=== PATIENT | female | born 1960 | race Caucasian/White ===

== ENCOUNTER 2016-07-14 16:08 | Emergency (ER) | payer MEDICAID, OTHER ==
--- NOTE | 2016-07-14 16:46 | EDPHY ---
H & P Stated Complaint: Concerned about Blood clot. Increased pain to right leg Time Seen by Provider: 07/14/16 16:34 HPI/ROS: CHIEF COMPLAINT: Leg discomfort HISTORY OF PRESENT ILLNESS: The patient is a 55-year-old female who comes to the emergency department complaining of right leg discomfort. It started in her right calf thinks gradually progressed to her knee and now posterior thigh. She is worried about a DVT. Her sisters have both had DVTs. She initially told triage that she thought she had some shortness of breath as well but denies this to me. She states that it was just in her head. She has a history of surgery on her right foot 6 years ago and is scheduled to have her prosthesis removed in a week. She has had a preoperative testing for this and is concerned that it will be canceled. She did have a mild cold last week that is now resolved. She denies chest pain. REVIEW OF SYSTEMS: Constitutional: denies: chills, fever, recent illness, recent injury EENTM: denies: blurred vision, double vision, nose congestion Respiratory: denies: cough, shortness of breath Cardiac: denies: chest pain, irregular heart rate, lightheadedness, palpitations Gastrointestinal/Abdominal: denies: abdominal pain, diarrhea, nausea, vomiting, blood streaked stools Genitourinary: denies: dysuria, frequency, hematuria, pain Musculoskeletal: See HPI,denies: joint pain, muscle pain Skin: denies: lesions, rash, jaundice, bruising Neurological: denies: headache, numbness, paresthesia, tingling, dizziness, weakness Hematologic/Lymphatic: denies: blood clots, easy bleeding, easy bruising Immunologic/allergic: denies: HIV/AIDS, transplant EXAM: GENERAL: Well-appearing, well-nourished and in no acute distress. HEAD: Atraumatic, normocephalic. EYES: Pupils equal round and reactive to light, extraocular movements intact, sclera anicteric, conjunctiva are normal. ENT: TMs normal, nares patent, oropharynx clear without exudates. Moist mucous membranes. NECK: Normal range of motion, supple without lymphadenopathy or JVD. LUNGS: Breath sounds clear to auscultation bilaterally and equal. No wheezes rales or rhonchi. HEART: Regular rate and rhythm without murmurs, rubs or gallops. ABDOMEN: Soft, nontender, normoactive bowel sounds. No guarding, no rebound. No masses appreciated. BACK: No CVA tenderness, no spinal tenderness, step-offs or deformities EXTREMITIES: Normal range of motion, no pitting or edema. No clubbing or cyanosis. NEUROLOGICAL: Cranial nerves II through XII grossly intact. Normal speech, normal gait. 5/5 strength, normal movement in all extremities, normal sensation PSYCH: Normal mood, normal affect. SKIN: Warm, dry, normal turgor, no visible rashes or lesions. Source: Patient Exam Limitations: No limitations - Personal History Current Tetanus Diphtheria and Acellular Pertussis (TDAP): Yes - Medical/Surgical History Hx Asthma: No Hx Chronic Respiratory Disease: No Hx Diabetes: No Hx Cardiac Disease: No Hx Renal Disease: No Hx Cirrhosis: No Hx Alcoholism: No Hx HIV/AIDS: No Hx Splenectomy or Spleen Trauma: No Other PMH: foot surgery with screws - Family History Significant Family History: Hypertension - Social History Smoking Status: Light smoker Alcohol Use: Sober Drug Use: None Constitutional: Initial Vital Signs Temperature (C) 36.5 C 07/14/16 16:16 Heart Rate 97 07/14/16 16:16 Respiratory Rate 16 07/14/16 16:16 Blood Pressure 156/82 H 07/14/16 16:16 O2 Sat (%) 97 07/14/16 16:16 O2 Delivery Mode Room Air Allergies/Adverse Reactions: No Known Allergies Allergy (Unverified 07/14/16 16:20) Medical Decision Making - Diagnostics EKG Interpretation: An EKG obtained and was read and documented in trace view. Please see trace view for full reading and report. Sinus rhythm, no acute ischemic changes, no signs of right heart strain Imaging: Study: Ultrasound of the: Right leg Indication: Right leg discomfort Results: US scan of the right leg was obtained. The results of the study are positive for right-sided bursitis/tendinitis tracking up hamstring tendon. The study was read by the radiologist, Dr. Wilfredo Perea. I viewed the images myself on the PACS system. ED Course/Re-evaluation: we discussed the ultrasound results. The patient is relieved. She continues to deny any chest pain or shortness of breath. She does not wish to have further workup or testing. She is eager to go home. She declines further testing. Additional verbal discharge instructions given. Differential Diagnosis: Partial list of the Differential diagnosis considered include but were not limited to; bursitis, tendonitis, DVT, PE, anxiety and although unlikely based on the history and physical exam, I also considered cellulitis, abscess, claudication. I discussed these differential diagnoses and the plan with the patient as well as the usual and expected course. The patient understands that the diagnosis is provisional and that in medicine we are not always correct and that further workup is often warranted. Usual and customary warnings were given. All of the patient's questions were answered. The patient was instructed to return to the emergency department should the symptoms at all worsen or return, otherwise to followup with the physician as we discussed. Departure - Departure Disposition: Home, Routine, Self-Care Clinical Impression: Bursitis Condition: Fair Instructions: Knee Bursitis (ED) Additional Instructions: Take anti-inflammatories is rest your leg as we discussed. Referrals: Clarita Perry MD [Medical Doctor] - As per Instructions
--- NOTE | 2016-07-14 17:22 | CPEKG ---
Heart Rate: 73 RR Interval: 822 P-R Interval: 144 QRSD Interval: 82 QT Interval: 408 QTC Interval: 450 P [place]: 60 QRS [place]: 51 T Wave [place]: 56 EKG Severity - NORMAL ECG - EKG Impression: SINUS RHYTHM Electronically Signed By: Martir Vaca 14-Jul-2016 17:25:58
--- NOTE | 2016-07-14 17:43 | US ---
Venous Duplex Doppler Study of the Right Lower Extremity Clinical Indications: 55-year-old female with pain beginning in the calf and moving up the leg, [facility] ed a few weeks ago. There is no personal history of blood clots, although there are some family membe rs with blood clots. Evaluate for deep or superficial venous thrombosis. Technique: A high-frequency transducer was used for imaging and Doppler study of the deep veins of th e right leg from the upper calf to the groin. Pulsed Doppler and color Doppler were utilized, along with various maneuvers, to assess flow in the deep veins. Cursory evaluation of the left common femor al vein was obtained for comparison purposes, and is normal. A cine clip was acquired through the rig ht medial aspect of the knee. Comparison Study: None. Findings: The deep veins of the right groin, thigh, knee, and upper calf are displayed, and are norm ally compressible. Doppler flow patterns are unremarkable. There is no evidence of deep venous thro mbosis. There is normal compression of the greater saphenous vein, without superficial thrombosis. In the medial aspect of the knee, there is a 2.9 x 0.6 cm tapering fluid collection, which likely repre sents a pes anserine bursitis. Impression: 1. There is no sonographic evidence of deep or superficial vein thrombosis in the right leg. 2. There is a 2.9 x 0.6 cm fluid collection along the medial aspect of the knee, likely representing a pes anserine bursitis. Results were conveyed to Dr. Martir Vaca. A test result has been communicated to a licensed care provider and documented in [employer], 5:35:22 PM , 07/14/2016, [employer] Message ID [id number].
[2016-07-14 18:00] VITALS: BP 138/78; PULSE 80; RESP 14; TEMP 98.4; O2SAT 94
== END 2016-07-14 17:59 | disposition home or self-care (01) ==
DX: M71.9 Bursopathy, unspecified (principal); F17.200 Nicotine dependence, unspecified, uncomplicated

== ENCOUNTER 2017-03-10 14:49 | Inpatient (IN) | payer MEDICAID ==
[2017-03-10] MEDS ORDERED: HYDROmorphONE/DILAUDID 1 MG/ML SYR IVP ONE ×2 (15:08→19:11)
[2017-03-10] MEDS ORDERED: NS 1,000 ML IV ONE ×2 (15:08→19:11)
[2017-03-10] MEDS ORDERED: ONDANSETRON 4 MG/2 ML VIAL IVP ONE ×2 (15:08→19:10)
--- NOTE | 2017-03-10 15:21 | EDPHY ---
H & P Stated Complaint: n/v this am now with epigastric/cp and sob Time Seen by Provider: 03/10/17 15:01 HPI/ROS: CHIEF COMPLAINT: Epigastric pain HISTORY OF PRESENT ILLNESS: The patient is a 56-year-old female who comes to the emergency department complaining of epigastric and lower abdominal discomfort that radiates to her left chest. She states that she has vomited 5 or 6 times since it began around 5 hours ago. She has also had diarrhea. She denies fever. She endorses shortness of breath but states that it is only when she is retching. She denies having any history of cardiac disease. She does drink regularly but denies alcoholism. She does not take any medications. REVIEW OF SYSTEMS: Constitutional: denies: chills, fever, recent illness, recent injury EENTM: denies: blurred vision, double vision, nose congestion Respiratory: denies: cough, shortness of breath Cardiac: See HPI Gastrointestinal/Abdominal: See HPI Genitourinary: denies: dysuria, frequency, hematuria, pain Musculoskeletal: denies: joint pain, muscle pain Skin: denies: lesions, rash, jaundice, bruising Neurological: denies: headache, numbness, paresthesia, tingling, dizziness, weakness Hematologic/Lymphatic: denies: blood clots, easy bleeding, easy bruising Immunologic/allergic: denies: HIV/AIDS, transplant EXAM: GENERAL: Well-appearing, well-nourished and in no acute distress. HEAD: Atraumatic, normocephalic. EYES: Pupils equal round and reactive to light, extraocular movements intact, sclera anicteric, conjunctiva are normal. ENT: TMs normal, nares patent, oropharynx clear without exudates. Moist mucous membranes. NECK: Normal range of motion, supple without lymphadenopathy or JVD. LUNGS: Breath sounds clear to auscultation bilaterally and equal. No wheezes rales or rhonchi. HEART: Regular rate and rhythm without murmurs, rubs or gallops. ABDOMEN: Mild upper abdominal the pain and fullness, no tenderness, normoactive bowel sounds. No guarding, no rebound. No masses appreciated. BACK: No CVA tenderness, no spinal tenderness, step-offs or deformities EXTREMITIES: Normal range of motion, no pitting or edema. No clubbing or cyanosis. NEUROLOGICAL: Cranial nerves II through XII grossly intact. Normal speech, normal gait. 5/5 strength, normal movement in all extremities, normal sensation PSYCH: Normal mood, normal affect. SKIN: Warm, dry, normal turgor, no visible rashes or lesions. Source: Patient Exam Limitations: No limitations - Personal History Current Tetanus/Diphtheria Vaccine: Unsure - Medical/Surgical History Hx Asthma: No Hx Chronic Respiratory Disease: No Hx Diabetes: No Hx Cardiac Disease: No Hx Renal Disease: No Hx Cirrhosis: No Hx Alcoholism: No Hx HIV/AIDS: No Hx Splenectomy or Spleen Trauma: No Other PMH: foot surgery with screws - Social History Smoking Status: Former smoker Alcohol Use: Sober Drug Use: None Constitutional: Initial Vital Signs Temperature (C) 37 C 03/10/17 14:52 Heart Rate 71 03/10/17 14:52 Respiratory Rate 18 03/10/17 14:52 Blood Pressure 164/95 H 03/10/17 14:52 O2 Sat (%) 99 03/10/17 14:52 O2 Delivery Mode Room Air Allergies/Adverse Reactions: No Known Allergies Allergy (Verified 03/10/17 14:51) Home Medications: Medication Instructions Recorded NK [No Known Home Meds] 03/10/17 Medical Decision Making - Diagnostics EKG Interpretation: An EKG obtained and was read and documented in trace view. Please see trace view for full reading and report. Sinus rhythm, no acute ischemic changes, unchanged from previous Imaging Results: Imaging Impressions Chest/Thorax CTA 03/10/17 16:34 Impression: Negative CT examination of the chest for acute pulmonary thromboembolic disease. Results called to Dr. Martir Rodriguez at 7:00 PM at the time of the interpretation. Abdomen CT 03/10/17 16:48 Impression: 1. Acute pancreatitis, without evidence of necrosis or pseudocyst formation. 2. High attenuation material at the dependent aspect of the bladder, which could be related to calcifications, with no appreciable mass. Correlation is recommended with UA. 3. Fat-containing supraumbilical hernia. 4. Additional findings, as above. Findings discussed with Mratir Vaca M.D. on March 10, 2017 at 1909. E:amm ED Course/Re-evaluation: On repeat evaluation the patient is feeling much better after Dilaudid. We discussed her lab results thus far. Her repeat abdominal exam is benign. She felt me now that her abdominal pain is somewhat chronic and is being worked up by her primary. She states that it is not really changed from her baseline. The epigastric/chest pain is new. I will order CT scan for further evaluation. After CT chest was ordered the lab called and stated the patient's lipase is not back yet because it is needing to be done lead. I will add on a CT of her abdomen. 5:50 p.m. the patient was up into the bathroom. She has an unsteady gait. No obvious tremors or tachycardia. I will treat her with thiamine and folate. She has denied repeatedly to me that she is a heavy drinker. 7:[address] results obtained, will admit to Dr. Alvarado Vera. She needed another dose of pain and nausea medication. Differential Diagnosis: Partial list of the Differential diagnosis considered include but were not limited to; pancreatitis, biliary disease, PE, acute coronary disease , alcoholism, Wernicke encephalopathy and although unlikely based on the history and physical exam, I also considered obstruction, withdrawal. - Data Points Laboratory Results: Laboratory Results 03/10/17 15:41 03/10/17 15:41 03/10/17 03/10/17 03/10/17 17:30 15:50 15:41 WBC RBC Hgb Hct MCV MCH MCHC RDW Plt Count MPV Neut % (Auto) Lymph % (Auto) [facility] % (Auto) Eos % (Auto) Baso % (Auto) Nucleat RBC Rel Count Absolute Neuts (auto) Absolute Lymphs (auto) Absolute Monos (auto) Absolute Eos (auto) Absolute Basos (auto) Absolute Nucleated RBC Immature Gran % Immature Gran # D-Dimer 2.25 ug/mLFEU H ug/mLFEU (0.00-0.50) Sodium Potassium Chloride Carbon Dioxide Anion Gap BUN Creatinine Estimated GFR Glucose Calcium Total Bilirubin Conjugated Bilirubin Unconjugated Bilirubin AST ALT Alkaline Phosphatase Troponin I Total Protein Albumin Lipase Beta HCG, Qual Urine Color YELLOW Urine Appearance CLEAR Urine pH 5.0 (5.0-7.5) Ur Specific [place] 1.019 (1.002-1.030) Urine Protein 1+ H (NEGATIVE) Urine Ketones 2+ H (NEGATIVE) Urine Blood 1+ H (NEGATIVE) Urine Nitrate NEGATIVE (NEGATIVE) Urine Bilirubin NEGATIVE (NEGATIVE) Urine Urobilinogen NEGATIVE EU EU (0.2-1.0) Ur Leukocyte Esterase NEGATIVE (NEGATIVE) Urine RBC 5-10 /hpf H /hpf (0-3) Urine WBC 1-3 /hpf /hpf (0-3) Ur Epithelial Cells TRACE /lpf /lpf (NONE-1+) Urine Bacteria TRACE /hpf H /hpf (NONE SEEN) Hyaline Casts 1-5 /lpf /lpf (0-1) Urine Mucus TRACE /lpf /lpf (NONE-1+) Urine Glucose NEGATIVE (NEGATIVE) Ethyl Alcohol < 10 mg/dL mg/dL (0-10) 03/10/17 03/10/17 03/10/17 15:41 15:41 15:41 WBC 9.47 10^3/uL 10^3/uL (3.80-9.50) RBC 4.38 10^6/uL 10^6/uL (4.18-5.33) Hgb 15.8 g/dL g/dL (12.6-16.3) Hct 44.0 % % (38.0-47.0) MCV 100.5 fL H fL (81.5-99.8) MCH 36.1 pg H pg (27.9-34.1) MCHC 35.9 g/dL g/dL (32.4-36.7) RDW 13.8 % % (11.5-15.2) Plt Count 298 10^3/uL 10^3/uL (150-400) MPV 8.9 fL fL (8.7-11.7) Neut % (Auto) 81.8 % H % (39.3-74.2) Lymph % (Auto) 9.3 % L % (15.0-45.0) [facility] % (Auto) 8.3 % % (4.5-13.0) Eos % (Auto) 0.0 % L % (0.6-7.6) Baso % (Auto) 0.2 % L % (0.3-1.7) Nucleat RBC Rel Count 0.0 % % (0.0-0.2) Absolute Neuts (auto) 7.74 10^3/uL H 10^3/uL (1.70-6.50) Absolute Lymphs (auto) 0.88 10^3/uL L 10^3/uL (1.00-3.00) Absolute Monos (auto) 0.79 10^3/uL 10^3/uL (0.30-0.80) Absolute Eos (auto) 0.00 10^3/uL L 10^3/uL (0.03-0.40) Absolute Basos (auto) 0.02 10^3/uL 10^3/uL (0.02-0.10) Absolute Nucleated RBC 0.00 10^3/uL 10^3/uL (0-0.01) Immature Gran % 0.4 % % (0.0-1.1) Immature Gran # 0.04 10^3/uL 10^3/uL (0.00-0.10) D-Dimer Sodium 129 mEq/L L mEq/L (134-144) Potassium 4.6 mEq/L mEq/L (3.5-5.2) Chloride 96 mEq/L L mEq/L (97-110) Carbon Dioxide 21 mEq/l L mEq/l (22-31) Anion Gap 12 mEq/L mEq/L (8-16) BUN 7 mg/dL mg/dL (7-23) Creatinine 0.5 mg/dL L mg/dL (0.6-1.0) Estimated GFR > 60 Glucose 81 mg/dL mg/dL (70-100) Calcium 9.8 mg/dL mg/dL (8.5-10.4) Total Bilirubin 1.2 mg/dL mg/dL (0.1-1.4) Conjugated Bilirubin 0.4 mg/dL mg/dL (0.0-0.5) Unconjugated Bilirubin 0.8 mg/dL mg/dL (0.0-1.1) AST 41 IU/L IU/L (14-46) ALT 46 IU/L IU/L (9-52) Alkaline Phosphatase 61 IU/L IU/L (38-126) Troponin I < 0.012 ng/mL ng/mL (0.000-0.034) Total Protein 7.3 g/dL g/dL (6.3-8.2) Albumin 4.4 g/dL g/dL (3.5-5.0) Lipase 20539 IU/L H IU/L (23-300) Beta HCG, Qual NEGATIVE Urine Color Urine Appearance Urine pH Ur Specific [place] Urine Protein Urine Ketones Urine Blood Urine Nitrate Urine Bilirubin Urine Urobilinogen Ur Leukocyte Esterase Urine RBC Urine WBC Ur Epithelial Cells Urine Bacteria Hyaline Casts Urine Mucus Urine Glucose Ethyl Alcohol Medications Given: Diphenhydramine HCl (Benadryl Injection) 25 - 50 mg IVP Q6HRS PRN PRN Reason: Itching Stop: 09/06/17 19:31 Last Admin: 03/10/17 22:09 Dose: 25 mg Sodium Chloride (Ns) 1,000 mls @ 150 mls/hr IV CONT [place] Stop: 09/06/17 19:44 Last Admin: 03/10/17 20:58 Dose: 1,000 mls Morphine Sulfate (Morphine Trailer Chief) 0 mg IV PRN PRN; Protocol PRN Reason: Pain, Severe Unable to Take PO Stop: 03/20/17 19:31 Last Admin: 03/10/17 20:57 Dose: 30 mg Promethazine HCl (Phenergan) 6.25 - 12.5 mg IVP Q6HRS PRN PRN Reason: Nausea/Vomiting, Use 2nd Stop: 09/06/17 19:31 Last Admin: 03/10/17 20:59 Dose: 12.5 mg Zolpidem Tartrate (Ambien) 10 mg PO HS PRN PRN Reason: Sleep/Insomnia Stop: 09/06/17 21:06 Last Admin: 03/10/17 22:03 Dose: 10 mg Discontinued Medications Folic Acid (Folic Acid) 1 mg PO EDNOW ONE Stop: 03/10/17 17:42 Last Admin: 03/10/17 22:04 Dose: Not Given Hydromorphone HCl (Dilaudid) 1 mg IVP EDNOW ONE Stop: 03/10/17 15:09 Last Admin: 03/10/17 15:40 Dose: 1 mg Hydromorphone HCl (Dilaudid) 1 mg IVP EDNOW ONE Stop: 03/10/17 19:12 Last Admin: 03/10/17 19:12 Dose: 1 mg Sodium Chloride (Ns) 1,000 mls @ 0 mls/hr IV EDNOW ONE; Wide Open PRN Reason: Protocol Stop: 03/10/17 15:09 Last Admin: 03/10/17 15:40 Dose: 1,000 mls Sodium Chloride (Ns) 1,000 mls @ 3,000 mls/hr IV ONCE ONE Stop: 03/10/17 19:30 Last Admin: 03/10/17 19:13 Dose: 1,000 mls Ondansetron HCl (Zofran) 4 mg IVP EDNOW ONE Stop: 03/10/17 15:09 Last Admin: 03/10/17 15:40 Dose: 4 mg Ondansetron HCl (Zofran) 4 mg IVP EDNOW ONE Stop: 03/10/17 19:11 Last Admin: 03/10/17 19:12 Dose: 4 mg Thiamine HCl (Vitamin B-1) 100 mg PO EDNOW ONE Stop: 03/10/17 18:50 Last Admin: 03/10/17 22:03 Dose: Not Given Departure - Departure Disposition: [facility] Acute Clinical Impression: Pancreatitis Qualifiers: Chronicity: acute Pancreatitis type: unspecified pancreatitis type Acute pancreatitis complication: unspecified Qualified Code(s): K85.90 - Acute pancreatitis without necrosis or infection, unspecified Condition: Fair
--- NOTE | 2017-03-10 15:47 | CPEKG ---
Heart Rate: 66 RR Interval: 909 P-R Interval: 144 QRSD Interval: 88 QT Interval: 456 QTC Interval: 478 P [place]: 80 QRS [place]: 70 T Wave [place]: 65 EKG Severity - BORDERLINE ECG - EKG Impression: SINUS RHYTHM EKG Impression: BORDERLINE INFERIOR Q WAVES Electronically Signed By: Martir Vaca 10-Mar-2017 16:08:24
[2017-03-10 15:57] LABS: % IMMATURE GRANULYOCYTES 0.4 % (0.0-1.1); ABSOLUTE IMMATURE GRANULOCYTES 0.04 10^3/uL (0.00-0.10); ADD DIFF? NO; ADD MORPH? NO; ADD SCAN? NO; ATYPICAL LYMPHOCYTE FLAG 10 (0-99); FRAGMENT RBC FLAG 0 (0-99); HEMOGLOBIN 15.8 g/dL (12.6-16.3); LEFT SHIFT FLG 0 (0-99); LIPEMIA HEMOLYSIS FLAG 90 (0-99); MEAN CELL HEMOGLOBIN 36.1 pg (27.9-34.1); MEAN CELL HEMOGLOBIN CONCENTR. 35.9 g/dL (32.4-36.7); MEAN CELL VOLUME 100.5 fL (81.5-99.8); MEAN PLATELET VOLUME 8.9 fL (8.7-11.7); PLATELET CLUMPS FLAG 0 (0-99); PLATELET COUNT 298 10^3/uL (150-400); RED BLOOD CELL COUNT 4.38 10^6/uL (4.18-5.33); RED CELL DISTRIBUTION WIDTH 13.8 % (11.5-15.2)
[2017-03-10 16:08] LABS: ALANINE AMINOTRANSFERASE 46 IU/L (9-52); ALBUMIN 4.4 g/dL (3.5-5.0); ALKALINE PHOSPHATASE 61 IU/L (38-126); ANION GAP 12 mEq/L (8-16); ASPARTATE AMINOTRANSFERASE 41 IU/L (14-46); BILIRUBIN,TOTAL 1.2 mg/dL (0.1-1.4); BILIRUBIN-CONJUGATED 0.4 mg/dL (0.0-0.5); BILIRUBIN-UNCONJUGATED 0.8 mg/dL (0.0-1.1); CALCIUM 9.8 mg/dL (8.5-10.4); CARBON DIOXIDE 21 mEq/l (22-31); CHLORIDE 96 mEq/L (97-110); CREATININE 0.5 mg/dL (0.6-1.0); GLOMERULAR FILTRATION RATE > 60; GLUCOSE 81 mg/dL (70-100); POTASSIUM 4.6 mEq/L (3.5-5.2); SODIUM 129 mEq/L (134-144); TOTAL PROTEIN 7.3 g/dL (6.3-8.2)
[2017-03-10] MEDS ORDERED: IOPAMIDOL (ISOVUE 370) 100 ML BTL IV ONE (17:37)
[2017-03-10 17:38] LABS: TROPONIN I < 0.012 ng/mL (0.000-0.034)
[2017-03-10] MEDS ORDERED: FOLIC ACID 1 MG TAB PO ONE (17:41)
[2017-03-10 18:12] LABS: COLOR YELLOW; LEUKOCYTE ESTERASE,URINE NEGATIVE (NEGATIVE); NITRITE,URINE NEGATIVE (NEGATIVE)
[2017-03-10] MEDS ORDERED: THIAMINE HCL 500 MG in NS 100 ML IV ONE (18:19)
[2017-03-10 18:31] LABS: BACTERIA TRACE /hpf (NONE SEEN); MUCUS TRACE /lpf (NONE-1+)
[2017-03-10] MEDS ORDERED: THIAMINE HCL 100 MG TAB PO ONE (18:49)
[2017-03-10] MEDS ORDERED: ONDANSETRON 4 MG/2 ML VIAL ONE (19:05)
[2017-03-10] MEDS ORDERED: HYDROmorphONE/DILAUDID 1 MG/ML SYR ONE (19:05)
[2017-03-10 19:21] LABS: ETHANOL SERUM < 10 mg/dL (0-10)
[2017-03-10] MEDS ORDERED: ONDANSETRON DISINTEGRATING 4 MG TAB PO PRN (19:32)
[2017-03-10] MEDS ORDERED: LORazepam 2 MG/ML INJ IVP PRN (19:32)
[2017-03-10] MEDS ORDERED: NALOXONE HCL 0.4 MG/ML INJ IVP PRN (19:32)
[2017-03-10] MEDS ORDERED: ONDANSETRON 4 MG/2 ML VIAL IVP PRN (19:32)
[2017-03-10] MEDS ORDERED: PROMETHAZINE HCL 25 MG/ML INJ IVP PRN (19:32)
--- NOTE | 2017-03-10 20:33 | GHP ---
[f rep st] HISTORY AND PHYSICAL DATE OF ADMISSION: 03/10/2017 This patient is a 56-year-old female with minimal past medical history, although she has been being evaluated by her primary care physician over the course of weeks or months for "digestive problems." She presents today with a day or so history of worsening pain, really everywhere, but mostly in th e epigastrium associated with nausea and vomiting. No diarrhea. She has been intolerant of p.o. S he still has her gallbladder, and denies abdominal trauma. She notes she drinks regularly, but denies binge alcohol. Has never had pancreatitis before. She h as no shortness of breath. No fever or chills. REVIEW OF SYSTEMS: Complete 10-point review of systems conducted, and negative except as in the HPI . PAST MEDICAL HISTORY: None, although there are ongoing digestive problems. Notably, she denies anastasia rrhea. ALLERGIES: She does note some pruritus as a result of the DILAUDID, and she had a similar reaction following some foot surgery in July, though she could not recall which PAIN MEDICINE it was. CURRENT MEDICATIONS: Antianxiety pill; she cannot remember the name of this. SOCIAL HISTORY: No tobacco. Alcohol as in the HPI. FAMILY HISTORY: Negative for pancreatitis. PHYSICAL EXAMINATION: VITAL SIGNS: Temp 37, blood pressure 164/95, pulse 71, breathing 18 times a minute, 99% on room air. GENERAL: Uncomfortable. Mild distress. HEENT: Sclerae anicteric. Oropharynx clear. Mucous membranes moist. NECK: Supple without lymphadenopathy or JVD. LUNGS: Clear to auscultation bilaterally. HEART: S1, S2, not tachycardic. ABDOMEN: Soft. It is diffusely tender. There is no rebound or guarding. LOWER EXTREMITIES: Without edema. Calves are nontender. SKIN: Without rash. NEUROLOGIC: Exam is nonfocal. LABS: White count 9.5, hematocrit 44, MCV is elevated to 100.5, platelets are 298,000. D-dimer is 2.25. Sodium 129, potassium 4.6, chloride 96, bicarb 21, BUN 7, creatinine 0.5. LFTs normal. Trop onin less than 0.012. Lipase is elevated at 19,291. Beta hCG is negative. UA shows 5-10 red cells, otherwise unremarkable. Ethanol level is negative. Abdominal CT, reviewed and interpreted by me, shows pancreatitis with normal liver and gallbladder a nd bile ducts. CTA of the chest shows no evidence of PE, but pancreatitis as discussed. EKG, interpreted by me, shows sinus at 66 with normal axis and intervals with no ST or T-wave change s. I discussed the case Dr. Martir Vaca. ASSESSMENT AND PLAN: A 56-year-old female, who presents with pancreatitis. 1. Pancreatitis: There does not appear to be a trigger, provided the patient is being forthright a bout her alcohol use, but she has normal hepatobiliary anatomy. We will treat her with n.p.o., IV f luids, IV pain medicines, IV antiemetics. Will give her morphine VOICE PROFESSOR. 2. Question of heavy alcohol use. She may or may not have heavy alcohol use. She does have a slig htly-elevated MCV. Will follow. 3. Hyponatremia; this is mild, secondary to poor p.o. intake. We will follow. I do not think we n eed to worry about slow correction here. 4. Acidosis. This is mild, and we will follow. 5. Prophylaxis. Pharmacologic prophylaxis is indicated. 6. Elevated D-dimer secondary to inflammation. DISPOSITION: Inpatient status. /[id number]/MODL
[2017-03-10] MEDS: morphINE PCA 30 MG/30 ML PCA IV PRN (20:57)
[2017-03-10] MEDS: NS 1,000 ML IV SCH (20:58)
[2017-03-10] MEDS ORDERED: THIAMINE HCL 500 MG in NS 100 ML IV SCH (22:00)
[2017-03-10] MEDS: ZOLPIDEM TARTRATE 5 MG TAB PO PRN (22:03)
[2017-03-11 05:42] LABS: % IMMATURE GRANULYOCYTES 0.3 % (0.0-1.1); ABSOLUTE IMMATURE GRANULOCYTES 0.02 10^3/uL (0.00-0.10); ADD DIFF? NO; ADD MORPH? NO; ADD SCAN? NO; ATYPICAL LYMPHOCYTE FLAG 30 (0-99); FRAGMENT RBC FLAG 0 (0-99); HEMATOCRIT 34.8 % (38.0-47.0); HEMOGLOBIN 12.1 g/dL (12.6-16.3); LEFT SHIFT FLG 0 (0-99); LIPEMIA HEMOLYSIS FLAG 90 (0-99); MEAN CELL HEMOGLOBIN 35.8 pg (27.9-34.1); MEAN CELL HEMOGLOBIN CONCENTR. 34.8 g/dL (32.4-36.7); PLATELET CLUMPS FLAG 0 (0-99); PLATELET COUNT 213 10^3/uL (150-400); RED BLOOD CELL COUNT 3.38 10^6/uL (4.18-5.33); RED CELL DISTRIBUTION WIDTH 13.9 % (11.5-15.2)
[2017-03-11 05:57] LABS: ALANINE AMINOTRANSFERASE 34 IU/L (9-52); ALKALINE PHOSPHATASE 41 IU/L (38-126); ANION GAP 5 mEq/L (8-16); ASPARTATE AMINOTRANSFERASE 27 IU/L (14-46); CALCIUM 8.8 mg/dL (8.5-10.4); CARBON DIOXIDE 24 mEq/l (22-31); CHLORIDE 101 mEq/L (97-110); CREATININE 0.6 mg/dL (0.6-1.0); GLOMERULAR FILTRATION RATE > 60; GLUCOSE 77 mg/dL (70-100); POTASSIUM 4.1 mEq/L (3.5-5.2); SODIUM 130 mEq/L (134-144); TOTAL PROTEIN 5.7 g/dL (6.3-8.2)
[2017-03-11] MEDS: ENOXAPARIN 40 MG/0.4 ML SYR SC SCH (08:40)
[2017-03-11] MEDS: NS 1,000 ML IV SCH ×2 (10:34→18:11)
--- NOTE | 2017-03-11 14:03 | HOSPPROG ---
Hospitalist Progress Note Assessment/Plan: Patient is a 56-year-old female who does not have any significant past medical history except having some ongoing digestive problems. She notes she drinks regularly but does not binge drink. Today is my 1st encounter with the patient. Chart reviewed. * acute pancreatitis With her supportive care with IV pain medications and IV fluids will check triglycerides for completeness sake and check a lipase again in the morning continue NPO status. Patient continues to have abdominal pain and vomiting * alcohol use will monitor for any signs for symptoms of withdrawal * pruritus this occurs any time she gets narcotics added Vistaril, Benadryl is giving very little relief add Pepcid to her profile * hyponatremia will recheck labs in the morning * pyuria No elevation in the white blood cell count, leukocyte esterase or nitrates she is concerned that she has to void frequently and is vague if it is burning will recheck a UA * elevated D-dimer CTA is negative for PE * DVT prophylaxis. On low molecular weight heparin * insomnia: patient requesting Ambien * plan. Continue fluids, pain control, check a urinalysis, and repeat labs in the morning Subjective: Evon is mainly complaining of itching. Objective: Vital Signs Temp Pulse Resp BP Pulse Ox 36.9 C 72 16 126/72 H 92 03/11/17 11:11 03/11/17 11:11 03/11/17 11:11 03/11/17 11:11 03/11/17 11:11 Laboratory Results 03/11/17 05:18 03/11/17 05:18 03/10/17 03/11/17 03/12/17 05:59 05:59 05:59 Intake Total 3363 Balance 3363 - Physical Exam Constitutional: chronically ill appearing, uncomfortable, No not in pain Eyes: PERRL Ears, Nose, Mouth, Throat: hearing normal Cardiovascular: regular rate and rhythym Respiratory: no respiratory distress Gastrointestinal: tenderness ( slight tenderness in epigastric), No normoactive bowel sounds ( hypoactive) Skin: warm Musculoskeletal: full muscle strength Neurologic: AAOx3 Psychiatric: interacting appropriately ICD10 Worksheet Patient Problems: Problems Problem Status Onset Pancreatitis Acute
[2017-03-11] MEDS ORDERED: hydrOXYzine HCL 25 MG TAB PO PRN (14:41)
[2017-03-11] MEDS: FAMOTIDINE 20 MG/NACL 50 ML IV SCH ×2 (16:58→20:15)
[2017-03-11 17:40] LABS: COLOR YELLOW; LEUKOCYTE ESTERASE,URINE NEGATIVE (NEGATIVE); NITRITE,URINE NEGATIVE (NEGATIVE)
[2017-03-11 17:52] LABS: BACTERIA 4+ /hpf (NONE SEEN); MUCUS TRACE /lpf (NONE-1+)
[2017-03-11] MEDS: THIAMINE HCL 500 MG in NS 100 ML IV SCH (17:57)
[2017-03-11] MEDS: morphINE PCA 30 MG/30 ML PCA IV PRN (22:43)
[2017-03-11] MEDS: ZOLPIDEM TARTRATE 5 MG TAB PO PRN (23:27)
[2017-03-12] MEDS: NS 1,000 ML IV SCH (02:15)
[2017-03-12 06:37] LABS: ALANINE AMINOTRANSFERASE 31 IU/L (9-52); ALBUMIN 2.9 g/dL (3.5-5.0); ALKALINE PHOSPHATASE 42 IU/L (38-126); ANION GAP 8 mEq/L (8-16); ASPARTATE AMINOTRANSFERASE 24 IU/L (14-46); BILIRUBIN,TOTAL 0.9 mg/dL (0.1-1.4); CALCIUM 8.7 mg/dL (8.5-10.4); CARBON DIOXIDE 19 mEq/l (22-31); CHLORIDE 105 mEq/L (97-110); CREATININE 0.6 mg/dL (0.6-1.0); GLOMERULAR FILTRATION RATE > 60; GLUCOSE 42 mg/dL (70-100); POTASSIUM 3.6 mEq/L (3.5-5.2); SODIUM 132 mEq/L (134-144); TOTAL PROTEIN 5.5 g/dL (6.3-8.2)
[2017-03-12] MEDS ORDERED: D50W 25 GM/50 ML SYR IVP PRN (06:49)
[2017-03-12] MEDS: D5W 1/2 NS W/ 20 KCl/L 1,000 ML IV SCH ×2 (07:30→18:34)
[2017-03-12] MEDS: FAMOTIDINE 20 MG/NACL 50 ML IV SCH ×2 (08:12→20:42)
[2017-03-12] MEDS: ENOXAPARIN 40 MG/0.4 ML SYR SC SCH (08:13)
--- NOTE | 2017-03-12 08:50 | HOSPPROG ---
Hospitalist Progress Note Assessment/Plan: Patient is a 56-year-old female who does not have any significant past medical history except having some ongoing digestive problems. She notes she drinks regularly but does not binge drink. * acute pancreatitis Lipase has decreased significantly Patient is feeling much better. Will do a trial of clear liquids Will decrease her IV fluids * alcohol use will monitor for any signs for symptoms of withdrawal * pruritus this occurs any time she gets narcotics added Vistaril, Benadryl is giving very little relief add Pepcid to her profile * hyponatremia Sodium is 132 * pyuria No elevation in the white blood cell count, leukocyte esterase or nitrates she is concerned that she has to void frequently and is vague if it is burning will recheck a UA * elevated D-dimer CTA is negative for PE * DVT prophylaxis. On low molecular weight heparin * insomnia: Better with Ambien * plan. If patient can eat and drink and is feeling better could possibly discharge later this afternoon Subjective: Evon is feeling better today. Objective: Vital Signs Temp Pulse Resp BP Pulse Ox 36.8 C 68 16 112/62 94 03/12/17 07:28 03/12/17 07:28 03/12/17 07:28 03/12/17 07:28 03/12/17 07:28 Laboratory Results 03/11/17 05:18 03/12/17 05:59 03/11/17 03/12/17 03/13/17 05:59 05:59 05:59 Intake Total 3363 Balance 3363 - Physical Exam Constitutional: no apparent distress, appears nourished, not in pain Eyes: PERRL Ears, Nose, Mouth, Throat: hearing normal Cardiovascular: regular rate and rhythym Respiratory: no respiratory distress Gastrointestinal: normoactive bowel sounds, soft, non-tender abdomen Skin: warm, normal color Musculoskeletal: full muscle strength Neurologic: AAOx3 Psychiatric: interacting appropriately ICD10 Worksheet Patient Problems: Problems Problem Status Onset Pancreatitis Acute
[2017-03-12] MEDS: THIAMINE HCL 500 MG in NS 100 ML IV SCH (09:22)
[2017-03-12] MEDS: ZOLPIDEM TARTRATE 5 MG TAB PO PRN (20:42)
[2017-03-13 05:22] LABS: ALANINE AMINOTRANSFERASE 27 IU/L (9-52); ALBUMIN 2.9 g/dL (3.5-5.0); ALKALINE PHOSPHATASE 40 IU/L (38-126); ANION GAP 8 mEq/L (8-16); ASPARTATE AMINOTRANSFERASE 20 IU/L (14-46); BILIRUBIN,TOTAL 1.1 mg/dL (0.1-1.4); CALCIUM 8.5 mg/dL (8.5-10.4); CARBON DIOXIDE 20 mEq/l (22-31); CHLORIDE 103 mEq/L (97-110); CREATININE 0.5 mg/dL (0.6-1.0); GLOMERULAR FILTRATION RATE > 60; GLUCOSE 98 mg/dL (70-100); POTASSIUM 3.6 mEq/L (3.5-5.2); SODIUM 131 mEq/L (134-144); TOTAL PROTEIN 5.2 g/dL (6.3-8.2)
[2017-03-13 07:32] VITALS: RESP 16
[2017-03-13] MEDS: D5W 1/2 NS W/ 20 KCl/L 1,000 ML IV SCH (08:02)
[2017-03-13] MEDS: FAMOTIDINE 20 MG/NACL 50 ML IV SCH (08:04)
[2017-03-13] MEDS: THIAMINE HCL 500 MG in NS 100 ML IV SCH (08:04)
[2017-03-13] MEDS: ENOXAPARIN 40 MG/0.4 ML SYR SC SCH (08:04)
[2017-03-13 11:16] VITALS: BP 116/84; PULSE 66; TEMP 98.2; O2SAT 95
--- NOTE | 2017-03-13 13:58 | GDS ---
[f rep st] DISCHARGE SUMMARY DISCHARGE DIAGNOSES: 1. Acute pancreatitis. 2. Hyponatremia. 3. Pyuria. 4. Insomnia. CONSULTATIONS: Gastroenterology. STUDIES AND PROCEDURES DONE: 1. CT angio of the chest. 2. CT of the abdomen. PHYSICAL EXAM: GENERAL: The patient is alert. VITAL SIGNS: Afebrile at 36.8, pulse 66, respirator y rate 16, blood pressure is 116/84. She is saturating 95% on room air. I have seen evaluated the patient on the day of discharge. HOSPITAL COURSE: The patient is a 56-year-old female who presented to the emergency room with compla ints of abdominal pain. She was evaluated and diagnosed with: 1. Acute pancreatitis. Her condition has completely resolved. She is tolerating a regular diet, an d she is eager to be discharged home. She will follow up in the outpatient setting with her primary care physician. 2. Hyponatremia. Most likely secondary to hypovolemia. This is stable and will be monitored by her primary care physician. 3. Insomnia. She has been treated with Ambien. DISPOSITION: The patient will be discharged home independently. Followup will be with her primary c are doctor. DISCHARGE MEDICATIONS: None. DIET: She has been instructed to remain on a low-fat diet without any alcohol consumption. I spent greater than 35 minutes in the care, coordination, and management of this patient's dispositi on. /[id number]/MODL
--- NOTE | 2017-03-15 17:06 | ASDISCHSUM ---
Discharge Information Plan Status:Home with No Needs Medically Cleared to Leave: Discharge Date:03/13/2017 11:55 AM CM D/C Disposition:Home, Routine, Self-Care ADT D/C Disposition:Home, Routine, Self-Care Projected Discharge Date:03/13/2017 11:55 AM Transportation at D/C: Discharge Delay Reason: Follow-Up Date:03/13/2017 11:55 AM Discharge Slot: Final Diagnosis: Placement Information Patient Contact Information Contact Name:IWONA Relationship: Address:[address] [place] [address] City:[place] Alternate Phone: [facility] Code:[place] [id number] Email: Financial Information Financial Class: Primary Plan Desc:[facility] Primary Plan Number:[id number] Secondary Plan Desc: Secondary Plan Number: Assessment Information [facility] CM Progress Note CM Note CM Note Notes: Spoke w/RN, anticipate pt will dc home w/support of when medically stable. CM available for any changes. Date Signed: 03/12/2017 02:37 PM Electronically Signed By:Tammi Betancur Intervention Information
== END 2017-03-13 11:55 | disposition home or self-care (01) | DRG 439 ==
LOC: OBSVTOIN 19:32 → F3E 20:11
PROVIDERS: ADMIT Internal Medicine; ATTEND Internal Medicine
DX: K85.90 Acute pancreatitis without necrosis or infection, unspecified (principal); E87.1 Hypo-osmolality and hyponatremia; N39.0 Urinary tract infection, site not specified; G47.00 Insomnia, unspecified; Z87.891 Personal history of nicotine dependence
CPT/HCPCS: 96374; 97161-GP; 97165-GO; 97535-GO; G0480; J1170; J1200; J1650; J2060; J2270; J2405; J2550; J3411; Q9967

== ENCOUNTER 2017-07-11 10:37 | Inpatient (IN) | payer MEDICAID ==
[2017-07-11] MEDS ORDERED: fentaNYL 100 MCG/2 ML INJ IVP ONE (11:08)
[2017-07-11] MEDS ORDERED: NS 1,000 ML IV ONE (11:08)
[2017-07-11] MEDS ORDERED: PROMETHAZINE HCL 25 MG/ML INJ IVP ONE (11:08)
--- NOTE | 2017-07-11 11:13 | EDPHY ---
H & P Time Seen by Provider: 07/11/17 10:54 HPI/ROS: CHIEF COMPLAINT: Abdominal pain HISTORY OF PRESENT ILLNESS: Patient was admitted 03/10/2017 for pancreatitis and a lipase level of 19,000. She was doing well until night. She had a root canal from her dentist yesterday and antibiotics and pain medication and chicken broth and then started having abdominal pain in the epigastric area radiating to her back which felt identical to previous pancreatitis. Worse with oral intake including chicken soup and water. Associated with nausea vomiting or diarrhea. Symptoms severe today and persistent REVIEW OF SYSTEMS: Eye: no change in vision ENT: no sore throat, right side of her jaw and tooth feels better Cardiac: no chest pain or syncope Pulmonary: no cough or SOB Abdomen: HPI Musculoskeletal: no back pain Skin: no rash Neuro: no headache Constitutional: no fever : no urinary symptoms A comprehensive 10 point review of systems is otherwise negative aside from elements mentioned in the history of present illness. PAST MEDICAL HISTORY: Foot surgery, pancreatitis, anxiety Social history: Last alcohol July 06 General Appearance: Alert and conversant, cooperative. Eyes: No scleral icterus. ENT, Mouth: Dry mucous membranes, no gum swelling, no trismus Respiratory: Normal respiratory effort, breath sounds equal, lungs are clear to auscultation. Cardiovascular: Regular rate and rhythm. Gastrointestinal: Epigastric tenderness but no rebound or guarding. Neurological: Alert, face symmetric, normal motor and sensory in extremities. Skin: Warm and dry, no rashes. Musculoskeletal: No peripheral edema. Psychiatric: Not agitated. Emergency Department course/MDM: Normal saline hydration, Phenergan IV, fentanyl 100 mcg. Labs to include liver function tests and lipase. 1221: Lipase too high, per lab still diluting it. Per [place] [facility] admit patient at [facility], do not transfer to [facility]. 1228: Results discussed with the patient, additional IV Dilaudid, admission for pancreatitis. Lipase >11,000. Smoking Status: Former smoker Constitutional: Initial Vital Signs Temperature (C) 36.8 C 07/11/17 10:37 Heart Rate 78 07/11/17 10:37 Respiratory Rate 18 07/11/17 10:37 Blood Pressure 145/103 H 07/11/17 10:37 O2 Sat (%) 99 07/11/17 10:37 O2 Delivery Mode Room Air Allergies/Adverse Reactions: No Known Allergies Allergy (Verified 07/11/17 10:37) Home Medications: Medication Instructions Recorded Amoxicillin Trihydrate 500 mg PO Q6H 07/11/17 [Amoxicillin] Citalopram Hydrobromide [celeXA 10 10 mg PO DAILY 07/11/17 MG] Gabapentin [Neurontin 100 MG (*)] 100 mg PO Q12H PRN 07/11/17 Hydrocodone/APAP 5/325 [[place] 1 tab PO Q6HRS PRN 07/11/17 5/325 (*)] Lipase/Protease/Amylase [[place] 1 each PO BID PRN 07/11/17 15,000 Units Capsule] Lipase/Protease/Amylase [[place]ilar[place] 2 each PO TIDMEAL 07/11/17 15,000 Units Capsule] Medical Decision Making Consult/Admit Bed Type: [place] [id number] - Data Points Laboratory Results: Laboratory Results 07/11/17 11:15 07/11/17 11:15 07/11/17 07/11/17 11:15 11:15 WBC 8.49 10^3/uL 10^3/uL (3.80-9.50) RBC 4.04 10^6/uL L 10^6/uL (4.18-5.33) Hgb 14.2 g/dL g/dL (12.6-16.3) Hct 39.6 % % (38.0-47.0) MCV 98.0 fL fL (81.5-99.8) MCH 35.1 pg H pg (27.9-34.1) MCHC 35.9 g/dL g/dL (32.4-36.7) RDW 14.6 % % (11.5-15.2) Plt Count 358 10^3/uL 10^3/uL (150-400) MPV 8.5 fL L fL (8.7-11.7) Neut % (Auto) 76.7 % H % (39.3-74.2) Lymph % (Auto) 13.5 % L % (15.0-45.0) Ford % (Auto) 8.6 % % (4.5-13.0) Eos % (Auto) 0.6 % % (0.6-7.6) Baso % (Auto) 0.2 % L % (0.3-1.7) Nucleat RBC Rel Count 0.0 % % (0.0-0.2) Absolute Neuts (auto) 6.51 10^3/uL H 10^3/uL (1.70-6.50) Absolute Lymphs (auto) 1.15 10^3/uL 10^3/uL (1.00-3.00) Absolute Monos (auto) 0.73 10^3/uL 10^3/uL (0.30-0.80) Absolute Eos (auto) 0.05 10^3/uL 10^3/uL (0.03-0.40) Absolute Basos (auto) 0.02 10^3/uL 10^3/uL (0.02-0.10) Absolute Nucleated RBC 0.00 10^3/uL 10^3/uL (0-0.01) Immature Gran % 0.4 % % (0.0-1.1) Immature Gran # 0.03 10^3/uL 10^3/uL (0.00-0.10) Sodium 132 mEq/L L mEq/L (134-144) Potassium 4.0 mEq/L mEq/L (3.5-5.2) Chloride 99 mEq/L mEq/L (97-110) Carbon Dioxide 22 mEq/l mEq/l (22-31) Anion Gap 11 mEq/L mEq/L (8-16) BUN 6 mg/dL L mg/dL (7-23) Creatinine 0.5 mg/dL L mg/dL (0.6-1.0) Estimated GFR > 60 Glucose 104 mg/dL H mg/dL (70-100) Calcium 9.6 mg/dL mg/dL (8.5-10.4) Total Bilirubin 0.7 mg/dL mg/dL (0.1-1.4) Conjugated Bilirubin 0.3 mg/dL mg/dL (0.0-0.5) Unconjugated Bilirubin 0.4 mg/dL mg/dL (0.0-1.1) AST 20 IU/L IU/L (14-46) ALT 25 IU/L IU/L (9-52) Alkaline Phosphatase 60 IU/L IU/L (38-126) Total Protein 7.2 g/dL g/dL (6.3-8.2) Albumin 4.2 g/dL g/dL (3.5-5.0) Lipase 66461 IU/L H IU/L (23-300) Medications Given: Discontinued Medications Fentanyl (Sublimaze) 100 mcg IVP EDNOW ONE Stop: 07/11/17 11:09 Last Admin: 07/11/17 11:30 Dose: 100 mcg Hydromorphone HCl (Dilaudid) 1 mg IVP EDNOW ONE Stop: 07/11/17 12:30 Last Admin: 07/11/17 12:34 Dose: 1 mg Sodium Chloride (Ns) 1,000 mls @ 0 mls/hr IV EDNOW ONE; Wide Open PRN Reason: Protocol Stop: 07/11/17 11:09 Last Admin: 07/11/17 11:29 Dose: 1,000 mls Promethazine HCl (Phenergan) 12.5 mg IVP EDNOW ONE Stop: 07/11/17 11:09 Last Admin: 07/11/17 11:29 Dose: 12.5 mg Departure - Departure Disposition: [facility] Acute Clinical Impression: Pancreatitis Qualifiers: Chronicity: acute Pancreatitis type: unspecified pancreatitis type Acute pancreatitis complication: unspecified Qualified Code(s): K85.90 - Acute pancreatitis without necrosis or infection, unspecified Condition: Good
[2017-07-11 11:28] LABS: PLATELET COUNT 358 10^3/uL (150-400)
[2017-07-11] MEDS ORDERED: HYDROmorphONE/DILAUDID 1 MG/ML INJ IVP ONE (12:29)
[2017-07-11] MEDS ORDERED: PROTEASE PO PRN ×3 (14:06→16:30)
[2017-07-11] MEDS ORDERED: LIPASE PO PRN ×3 (14:06→16:30)
[2017-07-11] MEDS ORDERED: AMYLASE PO PRN ×3 (14:06→16:30)
[2017-07-11] MEDS ORDERED: [UNRECOGNIZED DRUG - OTHER] PO PRN (14:06)
[2017-07-11] MEDS ORDERED: ZOLPIDEM TARTRATE 5 MG TAB PO PRN (14:19)
[2017-07-11] MEDS ORDERED: ONDANSETRON 4 MG/2 ML VIAL IVP PRN (14:19)
[2017-07-11] MEDS ORDERED: oxyCODONE IR 5 MG TAB PO PRN (14:19)
[2017-07-11] MEDS ORDERED: HYDROmorphone HCL/NS/PF 0.4 MG/2 ML SYR IVP PRN (14:19)
[2017-07-11] MEDS ORDERED: ALBUTEROL 3 ML DEYVIAL IH PRN (14:19)
[2017-07-11] MEDS ORDERED: ONDANSETRON DISINTEGRATING 4 MG TAB PO PRN (14:19)
[2017-07-11] MEDS ORDERED: PROMETHAZINE HCL 25 MG/ML INJ IVP PRN (14:19)
[2017-07-11] MEDS ORDERED: ACETAMINOPHEN 325 MG TAB PO PRN (14:19)
--- NOTE | 2017-07-11 14:39 | ASMTCMCOM ---
CM Note CM Note Notes: Pt. is a 56-year-old woman admitted for symptoms of pancreatitis. Pt. d/c'ed in 03/2017 independently after being treated for pancreatitis at [facility]. D/c'ed independently in March. Anticipate independent d/c this admission. CM available should d/c POC change. Date Signed: 07/11/2017 02:39 PM Electronically Signed By:Oriana Hernandez LCSW
--- NOTE | 2017-07-11 14:42 | GHP ---
[f rep st] HISTORY AND PHYSICAL DATE OF ADMISSION: 07/11/2017 CHIEF COMPLAINT: Abdominal pain. HPI: The patient presents with acute abdominal pain, nausea, and vomiting and is currently unable to keep any liquids down. She was admitted on 03/10/2017, with acute pancreatitis with a lipase greater than 1000. No specific etiology could be discerned for the problem other than the possibility that she may have been consuming too much alcohol. Since March, she has consumed alcohol only once. She has stopped her use of tobacco 1 year ago, and 1 day [employer], she had a root canal in which she was prescribed a pain medication, antianxiety medication, and an antibiotic. As a result of these medications and having the root canal, she did not take her Zenpep, the medication for her pancreatitis before consuming these medications. Following the root canal yesterday, she began to develop epigastric abdominal pain with pain radiating to her back with nausea, vomiting, and a headache. The pain is similar in character to her previous pancreatitis and she presents to the emergency department where she is again found to have an elevated lipase and acute pancreatitis. She attempted to take some oral liquid with chicken soup and water but was unable to keep those down as these resulted in worsening nausea and vomiting. Since March, she has seen [facility] the [facility] and had a colonoscopy which is described as having numerous polyps, some of which were precancerous. She reports she is planning another colonoscopy in 1 or 2 months through [facility]. No biliary reason for her pancreatitis has been discerned. She is no longer drinking alcohol, though she did have 1 drink on July 06, without complications. In addition, her father 1 month ago and she smoked 2 cigarettes at that time, has felt a bit anxious, but she is persistently followed the eating plan and has not experienced abdominal pain until this admission. PAST MEDICAL HISTORY: Denies asthma, high blood pressure or diabetes. She reports she had previously had hypertension but changed her diet and has been doing yoga and her blood pressure has been normal. PAST SURGICAL HISTORY: She has had 5 foot surgeries on her left foot, the most recent one approximately 1 year ago. ALLERGY: No known allergies. MEDICATIONS: Reviewed in EMR and reconciled REVIEW OF SYSTEMS: A 10-point review of systems reveals only a headache associated with the nausea and vomiting without a prior history of a seizure disorder or any visual or auditory changes. PULMONARY: She has a long history of the use of tobacco but stopped approximately 1 year ago. She does not have a chronic cough, and has not recently had a sore throat, fever, or cough. CARDIOVASCULAR: Denies history of orthopnea, PND, chest pain, or cardiac rhythm disturbance. GI: Per HPI. She has had nausea and vomiting without hematemesis or hematochezia. Her bowels normally move normally once a day without difficulty. She has noted no blood. : She had a history of kidney or bladder infections during her college years but none recently. MUSCULOSKELETAL: She has had foot surgeries on her left foot but otherwise without complaints. SKIN: No rashes. Remainder of a 10-point review of systems is negative. SOCIAL HISTORY: She is currently single and lives alone. Tobacco: None, although she has a 20-30 pack year history of tobacco. Alcohol: She drank up until March 2017, when she had diminished significantly, and n her only recent small amount of alcohol was on July 06, at [email or web address]. This occurred without incidence. Drugs: None. FAMILY HISTORY: Positive for coronary artery disease in her mother and maternal grandmother. She has aunts on her maternal side who have had breast cancer and a sister who may have had cardiac disease. PHYSICAL EXAM: GENERAL: This is a pleasant, alert female who appears comfortable. VITAL SIGNS: She is hypertensive. Normal heart rate. Respiratory rate is normal and she has 1 reading of hypoxemia at 86% on room air , but otherwise is normal. She does not appear in any respiratory distress. HEENT: Normal. Tongue and buccal mucosa are normal without signs of lesions. NECK: Supple. There is no adenopathy in the neck. CHEST: Wall shows normal inspiratory excursion. LUNGS: Clear to P and A without wheezing, rales or rhonchi. HEART: Singular S1, S2. No murmur, gallop. ABDOMEN: Flat, normoactive bowel sounds to hypoactive. There is tenderness in the epigastrium and slightly below it with localized guarding and very slight rebound in that area. She reports there is a feeling of pain and tenderness in the CVAs bilaterally along with her lateral sides. Lower quadrants are nontender. EXTREMITIES: No edema, cyanosis, clubbing. SKIN: Free of rashes. NEUROLOGIC : Symmetric and normal. LABORATORY: CBC is normal except for a very slight left shift of a white count of 8000. Chemistry panel shows an elevated lipase at 11,500, normal LFTs, normal bilirubin, glucose normal of 104, and renal function is normal, though the sodium slightly low at 132. ASSESSMENT: 1. Acute pancreatitis, recurrent. It is possible that the use of pain medications along with antibiotics 1 day prior to admission may have exacerbated her pancreatitis. This seems unlikely, although it is the only inciting factor in history that can be derived. GI of the [facility] has evaluated the lady and we presume the biliary tree has been significantly evaluated. Today, she does not have any right upper quadrant tenderness, but once again, the patient herself does not know of any inciting cause for her pancreatitis both in March and now. Alcohol would be the obvious inciting factor, although she denies excessive use and has had only 1 drink and that was 5 days prior to admission without any pain or difficulty. Other possibilities could include hypercholesterolemia, which has not been evaluated. It is possible she passed a biliary stone and thus an ultrasound of the right upper quadrant will be ordered. In order to avoid unnecessary duplication, a consult with [facility] will be obtained as they can evaluate their records for other possibilities. 2. Hyponatremia. This is clearly secondary to persistent nausea and vomiting and will be treated with IV fluids. 3. Her code status is full. 4. Deep venous thrombosis prophylaxis will be with Lovenox. Given her pancreatitis, she is at increased risk for a DVT, and until she is fully ambulatory, Lovenox will be used. TIME: This admission required 55 minutes. BILLING: The patient should be admitted to observation status and will evaluate whether she is able to take p.o. within 24 hours. /[id number]/MODL MTDD
[2017-07-11] MEDS: NS W/ 20 KCl/L 1,000 ML IV SCH ×2 (14:46→23:46)
[2017-07-11] MEDS: PROTEASE PO SCH (16:34)
[2017-07-11] MEDS: LIPASE PO SCH (16:34)
[2017-07-11] MEDS: AMYLASE PO SCH (16:34)
[2017-07-11] MEDS ORDERED: HYDROmorphone HCL/NS/PF 0.4 MG/2 ML SYR IVP ONE (17:15)
[2017-07-11] MEDS: AMPICILLIN/SULBACTAM 1.5 GM in NS 50 ML IV SCH (17:25)
[2017-07-11] MEDS ORDERED: HYDROmorphONE/DILAUDID 6 MG/30 ML PCA IV PRN (17:31)
[2017-07-11] MEDS ORDERED: NALOXONE HCL 0.4 MG/ML INJ IVP PRN (17:31)
[2017-07-11] MEDS ORDERED: LORazepam 2 MG/ML INJ IVP ONE (22:15)
[2017-07-11] MEDS: morphINE PCA 30 MG/30 ML PCA IV PRN (23:46)
--- NOTE | 2017-07-12 02:30 | GCON ---
[f rep st] CONSULTATION GI CONSULTATION DATE OF CONSULTATION: 07/11/2017 REASON FOR CONSULTATION: Pancreatitis. HISTORY OF PRESENT ILLNESS: The patient is a 56-year-old female, who was admitted to the hospital today with bilateral periumbilical abdominal pain with radiation to the back, nausea and vomiting. I was asked to see the patient in consultation by Dr Norm Dawson. She does have a history of acute pancreatitis , with admission to the hospital in March of last year with a lipase greater than 1000. She was noted in the emergency room today to have a lipase of 11,500. She abstained from alcohol consumption after her last admission, until July 06 when she had several alcoholic beverages, albeit she stated she did not develop abdominal pain, nausea, vomiting until earlier today. She did recently have a root canal and required use of pain medications and antianxiety medications as well as antibiotics prior to this episode of pancreatitis. She had been taking Zenpep after last episode of pancreatitis, though discontinued this several weeks ago. She states she was seen by our practice and had a colonoscopy late last year, at which time multiple colon polyps were identified, albeit I do not find records of her in our office charts. MEDICATIONS: She was on Zenpep chronically prior to admission and recent pain medications and antibiotics for a root canal. ALLERGIES: She has no known drug allergies. PAST MEDICAL HISTORY: Significant for episode of pancreatitis in March of 2017 with a brief hospitalization at [facility]. PAST SURGICAL HISTORY: Significant for left foot surgery 1 year ago. FAMILY HISTORY: Negative for GI malignancies, inflammatory bowel disease, or pancreatitis. SOCIAL HISTORY: Negative for tobacco use, positive for intermittant "light" ETOH use, last on 07/06/17. REVIEW OF SYSTEMS: Other than significant for nausea, vomiting, and periumbilical abdominal pain were negative for comprehensive review of systems. PHYSICAL EXAMINATION: VITAL SIGNS: Today, temperature is 36.9 Celsius, pulse 74 and regular, blood pressure 127/63, respiratory rate was 18, O2 saturation 95 % on room air. GENERAL: Well-developed, well-nourished female looking somewhat distressed with complaints of pain, lying in bed, still with knees drawn up to her chest. INTEGUMENT: Clear HEENT: Head atraumatic, normocephalic. Pupils equally round and reactive to light. EOM intact. Nares patent. Mucous membranes moist. Dentition fair to poor. NECK: Supple. Trachea midline. LYMPHATICS: No cervical or axillary adenopathy palpated. PULMONARY: Lungs clear to percussion and auscultation. CARDIOVASCULAR: Regular rhythm rate. Normal S1, S2 without murmur. Peripheral pulses strong bilaterally. GASTROINTESTINAL: Abdomen supple. Quiet bowel sounds. No liver or spleen tip palpable. Tenderness to palpation in the periumbilical area without palpable mass or rebound. EXTREMITIES: Without deformity. NEURO: Patient was alert, oriented x3. There are no focal neurologic deficits. LABORATORIES: White count 8.49, hemoglobin 14.2, hematocrit 39.6, platelets 358 ,000. Sodium 132, potassium 4.0, chloride 99, CO2 22, anion gap 11, BUN 6, creatinine 0.5, glucose 104, magnesium 1.7. LFTs normal. Lipase 11,508. Urinalysis negative. Abdominal ultrasound revealed mild dilation of the pancreatic duct. Gallbladder well visualized without cholelithiasis. Common bile duct borderline enlarged to the level of the pancreatic head measuring 1 cm diameter , 6 mm diameter pancreatic duct. No pseudocyst formation or ascites. Inferior vena cava and portal venous structures appear normal. IMPRESSION: 1. Recurrent episode of pancreatitis of unclear etiology, could be related to prior alcohol use, but also should consider choledocholithiasis. 2. Nausea, vomiting, abdominal pain secondary to #1. 3. Abnormal image of the biliary tree likely secondary to pancreatitis and inflammation of the pancreatic head. RECOMMENDATIONS: 1. N.p.o. 2. IV antiemetic and narcotic therapy. 3. Will obtain MRCP tomorrow to rule out choledocholithiasis. 4. Will follow with you. /[id number]/MODL MTDD
[2017-07-12 04:41] LABS: PLATELET COUNT 261 10^3/uL (150-400)
[2017-07-12] MEDS: AMPICILLIN/SULBACTAM 1.5 GM in NS 50 ML IV SCH ×4 (05:36→18:26)
[2017-07-12] MEDS ORDERED: LORazepam 2 MG/ML INJ IVP ONE ×2 (06:30→10:00)
[2017-07-12] MEDS: LIPASE PO SCH ×3 (07:44→18:30)
[2017-07-12] MEDS: AMYLASE PO SCH ×3 (07:44→18:30)
[2017-07-12] MEDS: PROTEASE PO SCH ×3 (07:44→18:30)
[2017-07-12] MEDS: ENOXAPARIN 40 MG/0.4 ML SYR SC SCH (08:03)
[2017-07-12] MEDS: NS W/ 20 KCl/L 1,000 ML IV SCH ×2 (08:04→20:04)
[2017-07-12] MEDS ORDERED: GADOBUTROL 10 ML VIAL IVP ONE (09:53)
--- NOTE | 2017-07-12 12:13 | SOAPPROG ---
SOAP Progress Note Assessment/Plan: Assessment: 1. Pancreatitis; clinically improving. 2. Sludge and debris seen in GB in MRCP without CBD stones; ? gallstone pancreatitis. Plan: 1. Clear liquids today. 2. Surgical consultation with Dr Layton in am. Doyle Kay MD 07/12/17 12:15 Subjective: CC: Pancreatitis. Interval HPI: Feeling better today without significant nausea and minimal abdominal pain. Wants to eat. Up wanting in halls. Objective: Vital Signs Temp Pulse Resp BP Pulse Ox 36.9 C 70 16 144/80 H 96 07/12/17 11:30 07/12/17 11:30 07/12/17 11:30 07/12/17 11:30 07/12/17 11:30 Laboratory Results 07/12/17 04:24 07/12/17 04:24 07/11/17 07/12/17 07/13/17 05:59 05:59 05:59 Intake Total 1808 Output Total 3 Balance -3 1808 MRCP: Dilated pancreatic duct. Gallbladder sludge and debris. Laboratory Tests 07/11/17 07/12/17 11:15 04:24 Lipase 68830 H 5210 H Physical Exam - Physical Exam General Appearance: WD/WN, alert, no apparent distress Respiratory: lungs clear, normal breath sounds Cardiac/Chest: regular rate, rhythm Abdomen: normal bowel sounds (Mildly tender in periumbilical area without mass.) , soft Skin: normal color, warm/dry Neuro/Psych: alert, normal mood/affect, oriented x 3 ICD10 Worksheet Patient Problems: Problems Problem Status Onset Pancreatitis Acute
--- NOTE | 2017-07-12 14:52 | HOSPPROG ---
Hospitalist Progress Note Assessment/Plan: 56 yo female with acute pancreatitis of uncertain etiology. Pain improved today with morphine OCCUP THER, less nausea; can tolerate a clear liquid diet. Moving gas. Notes RUQ pain at time of event and prior. Reports itching with dilaudid. -acute pancreatitis; MRI reviewed. Possible gallstone pancreatitis as sludge in gallbladder, pancrease with dilated ducts. -pain management: better with OCCUP THER -hyponataremia; now normal Discussed findings with patient and friends, drawing pictures of anatomy. will consult surgery will order lipid panel re hypercholesterolemia as cause, no h/o same Time: 40 minutes; discussed with surgery and nursing, patient per above Subjective: reports pain is better with OCCUP THER; endorse RUQ pain prior to event Objective: Vital Signs Temp Pulse Resp BP Pulse Ox 36.9 C 61 16 152/86 H 95 07/12/17 11:30 07/12/17 14:00 07/12/17 14:00 07/12/17 14:00 07/12/17 14:00 Laboratory Results 07/12/17 04:24 07/12/17 04:24 07/11/17 07/12/17 07/13/17 05:59 05:59 05:59 Intake Total 1808 Output Total 3 Balance -3 1808 - Time Spent With Patient Time Spent with Patient: greater than 35 minutes Time Spent with Patient: Greater than 35 minutes spent on this patients care, greater than 50% of time spent counseling, educating, and coordinating care regarding the above mentioned plan. - Pending Discharge Pending Discharge Within 24 Hours: No Pending Discharge Within 48 Hours: Yes Pending Discharge Date: 07/14/17 Pending Discharge Time: 11:00 - Physical Exam Constitutional: no apparent distress Eyes: PERRL, anicteric sclera Ears, Nose, Mouth, Throat: moist mucous membranes, hearing normal Cardiovascular: regular rate and rhythym, no murmur, rub, or gallop Respiratory: no respiratory distress, no rales or rhonchi, clear to auscultation Gastrointestinal: normoactive bowel sounds, tenderness (tenderness in RUQ of slight degree without rebound; no mass) Genitourinary: no bladder fullness Skin: warm Musculoskeletal: full muscle strength Neurologic: AAOx3, CN II-XII Intact ICD10 Worksheet Patient Problems: Problems Problem Status Onset Pancreatitis Acute
--- NOTE | 2017-07-12 15:47 | PDMN ---
Medical Necessity Medical necessity: C/M review: est. 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
[2017-07-12] MEDS: morphINE PCA 30 MG/30 ML PCA IV PRN (18:53)
--- NOTE | 2017-07-12 19:08 | GCON ---
[f rep st] CONSULTATION DATE OF CONSULTATION: 07/12/2017 CHIEF COMPLAINT: Abdominal pain. HISTORY OF PRESENT ILLNESS: This is a pleasant 56-year-old female, admitted to the medical service with pancreatitis. Briefly, she presented 1 day ago complaining of epigastric pain associated with nausea and vomiting with inability to keep anything down. Briefly, she was hospitalized here back in March of 2017 for alcohol-induced pancreatitis and since that time, states that she has stopped drinking, albeit did have a drink on New Year's Day without any untoward sequela. States that prior to her presentation yesterday she recently had a root canal and did not take her pancreatic enzymes before consuming pain medications after her procedure, and began to experience the above symptoms. She attempted to take some oral liquid and chicken soup, but was unable to keep anything down. In addition, she also recently underwent a colonoscopy, some of which were noted to be precancerous. In the past she has had imaging of her abdomen performed, none of which has shown any kind of biliary pathology, significantly cholelithiasis or choledocholithiasis in the past. On my presentation she complains of epigastric pain. Other than that, she feels well. She is tolerating clear liquids and denies having fevers or chills. PAST MEDICAL HISTORY: Previous history of hypertension as well as alcohol abuse and alcohol-induced pancreatitis. PAST SURGICAL HISTORY: Multiple foot surgeries. No abdominal surgeries in the past. CURRENT MEDICATIONS: Reviewed. FAMILY HISTORY: Noncontributory. SOCIAL HISTORY: Previous drinker. Denies current EtOH Denies illicit drug use. REVIEW OF SYSTEMS: A full 10-point review was performed and unless stated above , is otherwise negative. PHYSICAL EXAMINATION: VITAL SIGNS: Temperature 36.9, blood pressure 93/84, heart rate 71, and she is 93% on room air. CONSTITUTIONAL: She appears comfortable. She is in no acute distress. EYES: Her pupils are equal, round, and reactive to light and accommodation. She has anicteric sclerae. Her extraocular movements are intact. EARS, NOSE, MOUTH, THROAT: She has dry mucous membranes. Her hearing is normal. Her ears appear normal, and she has no mucosal ulcers CARDIOVASCULAR: She has a regular rate and rhythm without any murmurs. RESPIRATORY: She has no respiratory distress, rales, or rhonchi. She is otherwise clear to auscultation. GI: She has hypoactive bowel sounds. She is tender to palpation in the epigastrium, with some radiation to the right upper quadrant. She has no rebound tenderness or guarding. No palpable masses. SKIN: Warm. Normal color. No rashes or abrasions. MUSCULOSKELETAL: Full strength. No tenderness. Normal joint range of motion. NEUROLOGIC: Alert and oriented x3. Cranial nerves 2-12 are intact. No weakness. No numbness. No asterixis. PSYCH: Interacting appropriately. She is not anxious. She is not encephalopathic, and her thought process is linear LYMPH, HEME AND IMMUNOLOGIC: She has no cervical, groin, nor supraclavicular lymphadenopathy appreciated. LABS: White blood cell count normal at 5. H and H low at 12 and 36. She does not have a left shift. Chemistry is remarkable for normal liver function tests performed yesterday, including a T bili of 0.7, a conjugated bilirubin of 0.3, and an unconjugated fraction of 0.4. AST and ALT were normal at 20 and 25 respectively. Her alk phos was also normal at 60. Her admission lipase was over 11,000. Her lipase today has now come down to 5210. She had including and abdominal ultrasound and abdominal MRI, the images of which were personally reviewed by me. The ultrasound shows no pericholecystic fluid, no gallbladder wall thickening, and no stones. It does show some inflammation surrounding the pancreas. The abdominal MRI corroborates these findings; however, it does show dilatation of the pancreatic duct. No evidence of any choledochal stone, but it does show sludge and debris within the gallbladder. ASSESSMENT AND PLAN: A 56-year-old female with recurrent pancreatitis. After evaluating the patient and reviewing her imaging, I do think that it is reasonable that her gallbladder and the sludge within it could be causing or at least contributing to her recurrent pancreatitis. I did tell her that the more than likely cause of her having pancreatitis in the future would be alcohol relapse, and we briefly discussed her sobriety. I did tell her that there is a chance that the sludge is contributing and she would benefit from cholecystectomy. We discussed the risks, benefits, and alternatives, and she wishes to proceed. I did tell her that it is not safe to proceed with cholecystectomy as long as she has a significant amount of inflammation as she does now, and we would need her pancreatitis to improve both biochemically and clinically before proceeding with surgery. She understands this. I will continue to follow with you with planned cholecystectomy this admission, when the above parameters are met. /[id number]/MODL MTDD
[2017-07-12] MEDS: HYDROCORTISONE 1% CREAM TP PRN (21:47)
[2017-07-13] MEDS: AMPICILLIN/SULBACTAM 1.5 GM in NS 50 ML IV SCH ×3 (00:03→13:02)
[2017-07-13] MEDS: NS W/ 20 KCl/L 1,000 ML IV SCH (04:16)
[2017-07-13 04:48] LABS: PLATELET COUNT 232 10^3/uL (150-400)
[2017-07-13 06:01] VITALS: O2SAT 95
[2017-07-13] MEDS: HYDROCORTISONE 1% CREAM TP PRN (07:46)
[2017-07-13] MEDS: ENOXAPARIN 40 MG/0.4 ML SYR SC SCH (07:48)
[2017-07-13 07:51] VITALS: RESP 16
[2017-07-13] MEDS: LIPASE PO SCH ×2 (08:19→13:02)
[2017-07-13] MEDS: AMYLASE PO SCH ×2 (08:19→13:02)
[2017-07-13] MEDS: PROTEASE PO SCH ×2 (08:19→13:02)
[2017-07-13 11:42] VITALS: BP 154/75; PULSE 60; TEMP 98.2
--- NOTE | 2017-07-13 12:19 | SOAPPROG ---
SOAP Progress Note Assessment/Plan: Assessment/Plan: - lipase normal, pain WNL - Offered enzo, Pt stated that she talked with [facility]CP, wants to hold on surgery for now. - would advance diet, dc. She can f/u with [facility] surgeon 07/13/17 12:18 Subjective: no pain Objective: Vital Signs Temp Pulse Resp BP Pulse Ox 36.8 C 60 16 154/75 H 95 07/13/17 11:40 07/13/17 11:40 07/13/17 11:40 07/13/17 11:40 07/13/17 11:40 Laboratory Results 07/13/17 04:40 07/13/17 04:40 07/12/17 07/13/17 07/14/17 05:59 05:59 05:59 Intake Total 1171 Balance 1171 ICD10 Worksheet Patient Problems: Problems Problem Status Onset Pancreatitis Acute
--- NOTE | 2017-07-13 15:27 | GDS ---
[f rep st] DISCHARGE SUMMARY DISCHARGE DIAGNOSES: 1. Abdominal pain. 2. Acute pancreatitis. 3. Hyponatremia. CONSULTATIONS: 1. Gastroenterology. 2. General Surgery. STUDIES AND PROCEDURES DONE: 1. Abdominal MRI. 2. Abdominal ultrasound. PHYSICAL EXAM: GENERAL: The patient is alert. VITAL SIGNS: Afebrile at 36.8, pulse is 60, respira tory rate 16, blood pressure is 154/75. She is saturating 95% on room air. I have seen and evaluate d the patient on the day of discharge. HOSPITAL COURSE: The patient is a 56-year-old female with abdominal pain. She was evaluated and anastasia gnosed with: 1. Acute pancreatitis. This is possibly related to gallstone pancreatitis. There is noted sludge i n her gallbladder. The patient did receive a [facility] She was offered cholecystectomy during this hospitalization, but has refused and would like to be discharged home to follow up in the outpatient setting with her own physicians. Abdominal pain is improved and she is tolerating a liquid diet. 2. Pain this is better. However, the patient has been using a PROGRAM ADVISOR. She does state that she has vida n medications available at home and has a follow-up appointment with her primary care provider. 3. Hyponatremia in the setting of mild dehydration, has resolved. DISPOSITION: The patient will be discharged home independently. Her lipase is normal. Her pain is within normal limits. She is tolerating clear liquids. FOLLOWUP: Followup will be with her primary care provider at [place]. There are no pending studies. DISCHARGE MEDICATIONS: Please refer to EMR form. I have not provided the patient any prescriptions at the time of disposition. I have discussed the patient's discharge with Dr. Luis Barker, who is in agreement with this plan . I spent greater than 35 minutes in the care, coordination, and management of this patient's dispositi on. /[id number]/MODL
== END 2017-07-13 13:39 | disposition home or self-care (01) | DRG 439 ==
LOC: INTOOBSV 12:23 → F3N 13:14 → OBSVTOIN 07-12 15:30
PROVIDERS: ADMIT Internal Medicine Pulmonary Disease; ATTEND Family Medicine
DX: K86.1 Other chronic pancreatitis (principal); K85.10 Biliary acute pancreatitis without necrosis or infection; E87.1 Hypo-osmolality and hyponatremia; R10.13 Epigastric pain; Z98.818 Other dental procedure status; Z87.898 Personal history of other specified conditions; Z87.891 Personal history of nicotine dependence; Z80.3 Family history of malignant neoplasm of breast
CPT/HCPCS: 96374; A9585; G0378; J1170; J1200; J1650; J2060; J2270; J2405; J2550; J3010